=== PATIENT | female | born 1960 | race Caucasian/White ===

== ENCOUNTER → 2016-06-25 | Outpatient (CLI) | payer OTHER ==
--- NOTE | 2016-06-26 02:20 | REP ---
Clinical: Lower back pain expanding to the right extremity. Technique: AP, lateral, bilateral oblique, and coned-down views. Findings: Alignment and lordosis is maintained. The vertebral bodies including transverse process and spinous processes are intact and there is no evidence for acute fracture / compression injury or subluxation. No evidence for spondylolysis or spondylolisthesis. Moderate multilevel degenerative changes include osteophytosis, endplate sclerosis with disc space narrowing and hypertrophic facet changes. Impression: Moderate multilevel degenerative disc osteophyte complex Signed by Kostas Monroe MD 06/26/2016 02:11 A
== END ==
LOC: M LRY 14:20
PROVIDERS: ATTEND Family Medicine
DX: M54.5 Low back pain (principal)

== ENCOUNTER → 2017-05-06 | Outpatient (REF) | payer OTHER ==
[2017-05-06 20:03] LABS: MEAN CORPUSCULAR HEMOGLOBIN 36.9 pg (27.0-33.0); MEAN CORPUSCULAR HGB CONC 34.3 g/dl (32.0-36.5); MEAN CORPUSCULAR VOLUME 107.8 fl (80.0-96.0); PLATELET COUNT, AUTOMATED 196 10^3/uL (150-450); WHITE BLOOD COUNT 4.7 10^3/uL (4.0-10.0)
[2017-05-06 20:34] LABS: ALBUMIN 4.2 GM/DL (3.2-5.2); ALBUMIN/GLOBULIN RATIO 1.35 (1.00-1.93); ALKALINE PHOSPHATASE 67 U/L (45-117); ALT/SGPT 20 U/L (12-78); ANION GAP 6 MEQ/L (8-16); AST/SGOT 23 U/L (7-37); BILIRUBIN,TOTAL 0.5 MG/DL (0.2-1.0); BLOOD UREA NITROGEN 5 MG/DL (7-18); CALCIUM LEVEL 8.9 MG/DL (8.5-10.1); CARBON DIOXIDE LEVEL 28 MEQ/L (21-32); CHLORIDE LEVEL 102 MEQ/L (98-107); CHOLESTEROL LEVEL 256 MG/DL (<200); CREATININE FOR GFR 0.77 MG/DL (0.55-1.02); GLOMERULAR FILTRATION RATE > 60.0 (>51); GLUCOSE, FASTING 78 MG/DL (70-105); SODIUM LEVEL 136 MEQ/L (136-145); TOTAL PROTEIN 7.3 GM/DL (6.4-8.2); TRIGLYCERIDES LEVEL 103 MG/DL (<150)
== END ==
LOC: M SFHCLERA 14:03
PROVIDERS: ATTEND Family Medicine
DX: I10 Essential (primary) hypertension (principal)

== ENCOUNTER → 2018-03-24 | Outpatient (REF) | payer OTHER | LOC: M SFHCLERA 16:40 | DX: Z53.8 Procedure and treatment not carried out for other reasons (principal) ==

== ENCOUNTER → 2019-01-03 | Outpatient (REF) | payer OTHER ==
[2019-01-03 21:00] LABS: ALBUMIN 3.8 GM/DL (3.2-5.2); BILIRUBIN,TOTAL 0.4 MG/DL (0.2-1.0); CALCIUM LEVEL 8.9 MG/DL (8.5-10.1); CHOLESTEROL RISK RATIO 1.889 (<5); CREATININE FOR GFR 1.05 MG/DL (0.55-1.30); GLOMERULAR FILTRATION RATE 57.5 (>51); POTASSIUM SERUM 4.1 MEQ/L (3.5-5.1); THYROID STIMULATING HORMONE 1.72 uIU/ML (0.358-3.740); TOTAL PROTEIN 6.9 GM/DL (6.4-8.2)
[2019-01-03 21:02] LABS: HEMOGLOBIN A1c 4.8 %
== END ==
LOC: M SFHCLERA 14:51
PROVIDERS: ATTEND Family Medicine
DX: I10 Essential (primary) hypertension (principal)

== ENCOUNTER → 2019-06-28 | Outpatient (REF) | payer OTHER | LOC: M SFHCLERA 17:15 | PROVIDERS: ATTEND Family Medicine | DX: I10 Essential (primary) hypertension (principal) ==

== ENCOUNTER → 2021-08-26 | Outpatient (CLI) | payer OTHER ==
[2021-08-26 15:30] LABS: ALBUMIN 2.8 GM/DL (3.2-5.2); ALT/SGPT 23 U/L (12-78); BILIRUBIN,TOTAL 0.4 MG/DL (0.2-1.0); BLOOD UREA NITROGEN 3 MG/DL (7-18); CALCIUM LEVEL 8.7 MG/DL (8.8-10.2); CARBON DIOXIDE LEVEL 24 MEQ/L (21-32); CHLORIDE LEVEL 108 MEQ/L (98-107); CHOLESTEROL LEVEL 243 MG/DL (<200); CHOLESTEROL RISK RATIO 2.557 (<5); CREATININE FOR GFR 0.85 MG/DL (0.55-1.30); GLOMERULAR FILTRATION RATE > 60.0 (>45); GLUCOSE, FASTING 87 MG/DL (70-100); HDL CHOLESTEROL 95 MG/DL (>40); HEMOGLOBIN A1c 4.4 %; LDL CHOLESTEROL 105 MG/DL (<100); NON-HDL-C 148 MG/DL; POTASSIUM SERUM 4.2 MEQ/L (3.5-5.1); SODIUM LEVEL 140 MEQ/L (136-145); TRIGLYCERIDES LEVEL 215 MG/DL (<150)
== END ==
LOC: M PLALAB 13:48 → M PLAIMG 13:48
PROVIDERS: ATTEND Student in an Organized Health Care Education/Training Program
DX: Z00.00 Encounter for general adult medical examination without abnormal findings (principal); M54.41 Lumbago with sciatica, right side; M17.11 Unilateral primary osteoarthritis, right knee; M16.11 Unilateral primary osteoarthritis, right hip; M51.37 Other intervertebral disc degeneration, lumbosacral region; M51.87 Other intervertebral disc disorders, lumbosacral region

== ENCOUNTER → 2021-12-09 | Outpatient (REF) | payer OTHER ==
[2021-12-10 11:55] LABS: APPEARANCE, URINE HAZY (CLEAR); BACTERIA, URINE AUTO NEGATIVE (NEGATIVE); BILIRUBIN, URINE AUTO NEGATIVE (NEGATIVE); BLOOD, URINE BLOOD NEGATIVE (NEGATIVE); COLOR, URINE YELLOW (YELLOW); GLUCOSE, URINE (UA) AUTO NEGATIVE (NEGATIVE); KETONE, URINE AUTO 1+ mg/dL (NEGATIVE); LEUKOCYTE ESTERASE, URINE AUTO NEGATIVE (NEGATIVE); NITRITE, URINE AUTO NEGATIVE (NEGATIVE); PROTEIN, URINE AUTO NEGATIVE (NEGATIVE); RBC, URINE AUTO 0 /HPF (0-3); SPECIFIC GRAVITY URINE AUTO 1.009 (1.002-1.035); SQUAMOUS EPITHELIAL CELL UR AU 3 /HPF (0-6); UROBILINOGEN, URINE AUTO 0.2 mg/dL (0.0-2.0); WBC, URINE AUTO 1 /HPF (0-3)
== END ==
LOC: M SFHCLERA 11:32
PROVIDERS: ATTEND Student in an Organized Health Care Education/Training Program
DX: R39.15 Urgency of urination (principal)

== ENCOUNTER 2024-08-25 08:16 | Emergency (ER) | payer OTHER ==
[~2024-08-25] VITALS: Ht 167.6 cm; Wt 63.6 kg
[2024-08-25] MEDS: BOOSTRIX VACCINE (TETANUS/DIPHTH/ACEL. PERTUSSIS) 0.5ML SYR IM.IMMUN ONE (09:12)
[2024-08-25 09:30] LABS: BASO % 0.3 % (0.0-1.0); EOS % 0.6 % (0.0-3.0); HEMATOCRIT 33.9 % (36.0-47.0); HEMOGLOBIN 11.7 g/dl (12.0-15.5); LYMPH # 1.8 10^3/uL (1.5-5.0); LYMPH % 54.4 % (24.0-44.0); MEAN CORPUSCULAR HEMOGLOBIN 37.4 pg (27.0-33.0); MEAN CORPUSCULAR HGB CONC 34.5 g/dl (32.0-36.5); MEAN CORPUSCULAR VOLUME 108.3 fl (80.0-96.0); MONO # 0.3 10^3/uL (0.0-0.8); NEUTROPHILS # 1.2 10^3/uL (1.5-8.5); NEUTROPHILS % 35.4 % (36.0-66.0); PLATELET COUNT, AUTOMATED 109 10^3/uL (150-450); RED BLOOD COUNT 3.13 10^6/uL (4.00-5.40); WHITE BLOOD COUNT 3.3 10^3/uL (4.0-10.0)
[2024-08-25 09:53] LABS: ETHYL ALCOHOL (ETHANOL) 0.212 % (0.000-0.010)
[2024-08-25] MEDS: NS (Normal Saline) 0.9% 1,000 ML IV ONE (09:59)
[2024-08-25 10:02] LABS: THYROID STIMULATING HORMONE 3.863 uIU/ML (0.55-4.78)
[2024-08-25] MEDS ORDERED: LORazepam 2 MG TAB PO PRN (10:05)
[2024-08-25 10:14] LABS: ALKALINE PHOSPHATASE 50 U/L (35-104); ALT/SGPT 16 U/L (7.0-40); AST/SGOT 26 U/L (<34); BILIRUBIN,DIRECT 0.2 MG/DL (<0.4); BILIRUBIN,TOTAL 0.4 MG/DL (0.3-1.2); BLOOD UREA NITROGEN < 5 MG/DL (9-23); CARBON DIOXIDE LEVEL 22 MMOL/L (20-31); CHLORIDE LEVEL 97 MMOL/L (98-107); CREATININE FOR GFR 0.82 MG/DL (0.55-1.30); GLOMERULAR FILTRATION RATE > 60.0 (>45); GLUCOSE, FASTING 91 MG/DL (74-106); MAGNESIUM LEVEL 1.6 MG/DL (1.8-2.4); POTASSIUM SERUM 3.3 MMOL/L (3.5-5.1); SODIUM LEVEL 130 MMOL/L (136-145); TOTAL PROTEIN 5.9 G/DL (5.7-8.2)
[2024-08-25] MEDS: POTASSIUM CHLORIDE 10MEQ SR TABLET PO ONE (11:08)
[2024-08-25] MEDS: THIAMINE 100 MG TAB PO SCH (11:09)
[2024-08-25] MEDS: MULTIVITAMINS/MINERALS THERAP 1 TAB PO SCH (11:09)
[2024-08-25] MEDS: MAG SULF 1GM/100ML (MAG RUN) 1 GM in IV 1 EA IV ONE (11:09)
[2024-08-25] MEDS: FOLIC ACID 1MG TAB PO SCH (11:09)
[2024-08-25 12:25] LABS: PHENCYCLIDINE URINE NEGATIVE (NEGATIVE)
[2024-08-25 12:26] LABS: AMPHETAMINES LEVEL URINE NEGATIVE (NEGATIVE); BARBITURATES URINE NEGATIVE (NEGATIVE); BENZODIAZEPINES URINE NEGATIVE (NEGATIVE); CANNABINOIDS URINE NEGATIVE (NEGATIVE); COCAINE METABOLITE URINE NEGATIVE (NEGATIVE); METHADONE URINE NEGATIVE (NEGATIVE); OPIATES URINE NEGATIVE (NEGATIVE)
[2024-08-25 13:00] VITALS: BP 94/52; TEMP 97.1; O2SAT 99
[2024-08-25] MEDS ORDERED: THIAMINE 100 MG TAB PO SCH (21:00)
[2024-08-26] MEDS ORDERED: MULTIVITAMINS/MINERALS THERAP 1 TAB PO SCH (09:00)
[2024-08-26] MEDS ORDERED: FOLIC ACID 1MG TAB PO SCH (09:00)
== END 2024-08-25 13:05 | disposition home or self-care (01) ==
LOC: M ED 08:16 → EDBD 08:16 → M ED 13:05
DX: F10.120 Alcohol abuse with intoxication, uncomplicated (principal); R00.1 Bradycardia, unspecified; I10 Essential (primary) hypertension; F17.210 Nicotine dependence, cigarettes, uncomplicated; Z23 Encounter for immunization
CPT/HCPCS: 70450; 71045; 72125; 80048; 80076; 80307; 82077; 83735; 84443; 85025; 87486; 87581; 87633; 87798; 90471; 90715; 93005; 93041; 94760; 96374; 99285; J3475

== ENCOUNTER → 2025-04-05 | Outpatient (CLI) | payer MEDICARE, MEDICAID ==
[2025-04-05 17:11] LABS: PLATELET COUNT, AUTOMATED 182 10^3/uL (150-450)
[2025-04-05 17:36] LABS: ESTIMATED AVERAGE GLUCOSE 88.0 MG/DL (60-110)
[2025-04-05 17:43] LABS: ALT/SGPT 13.0 U/L (7.0-40); AST/SGOT 20.0 U/L (<34); CALCIUM LEVEL 9.5 MG/DL (8.3-10.6); CARBON DIOXIDE LEVEL 26.0 MMOL/L (20-31); CHLORIDE LEVEL 96.0 MMOL/L (98-107); CHOLESTEROL LEVEL 203.0 MG/DL (<200); CHOLESTEROL RISK RATIO 3.02 (<5); CREATININE FOR GFR 0.82 MG/DL (0.55-1.30); GLOMERULAR FILTRATION RATE 80.3 (>45); IRON (FE) 164.0 UG/DL (50-170); LDL CHOLESTEROL 108.6 MG/DL (<100); MAGNESIUM LEVEL 1.8 MG/DL (1.8-2.4); NON-HDL-C 135.8 MG/DL; PERCENT SATURATION 48.5 % (13.2-45.0); POTASSIUM SERUM 4.3 MMOL/L (3.5-5.1); SODIUM LEVEL 128.0 MMOL/L (136-145); TRIGLYCERIDES LEVEL 136.0 MG/DL (<150); VITAMIN B12 LEVEL 354.0 PG/ML (211-911)
[2025-04-05 17:44] LABS: TOTAL 25(OH) VITAMIN D 7.4 NG/ML (20.0-100.0)
== END ==
LOC: M PLAIMG 15:44
PROVIDERS: ATTEND Family Medicine
DX: M25.512 Pain in left shoulder (principal); G47.00 Insomnia, unspecified; I10 Essential (primary) hypertension; F32.A Depression, unspecified; F10.11 Alcohol abuse, in remission; R39.15 Urgency of urination; G25.81 Restless legs syndrome; R42 Dizziness and giddiness; Z13.1 Encounter for screening for diabetes mellitus; Z13.220 Encounter for screening for lipoid disorders; Z13.21 Encounter for screening for nutritional disorder; Z79.899 Other long term (current) drug therapy